=== PATIENT | female | born 1955 | race Caucasian/White ===

== ENCOUNTER → 2016-07-14 | Outpatient (REF) | payer OTHER ==
[2016-07-14 12:18] LABS: BASO % 0.7 % (0.0-1.0); EOS # 0.2 K/mm3 (0.0-0.50); EOS % 2.5 % (0.0-3.0); LYMPH # 1.6 K/mm3 (1.5-4.5); LYMPH % 25.2 % (24.0-44.0); MEAN CORPUSCULAR HEMOGLOBIN 30.9 pg (27.0-33.0); MEAN CORPUSCULAR HGB CONC 32.9 g/dl (32.0-36.5); MEAN CORPUSCULAR VOLUME 93.8 fl (80.0-96.0); MONO # 0.3 K/mm3 (0.0-0.8); MONO % 5.3 % (0.0-5.0); RED CELL DISTRIBUTION WIDTH 11.9 % (11.5-14.5); WHITE BLOOD COUNT 6.2 K/mm3 (4.0-10.0)
[2016-07-14 12:43] LABS: ALBUMIN/GLOBULIN RATIO 1.08 (1.00-1.93); ALKALINE PHOSPHATASE 76 U/L (45-117); ALT/SGPT 23 U/L (12-78); ANION GAP 8 MEQ/L (8-16); AST/SGOT 17 U/L (15-37); BILIRUBIN,TOTAL 0.6 MG/DL (0.2-1.0); BLOOD UREA NITROGEN 20 MG/DL (7-18); CALCIUM LEVEL 9.5 MG/DL (8.8-10.2); CARBON DIOXIDE LEVEL 29 MEQ/L (21-32); CHLORIDE LEVEL 105 MEQ/L (98-107); CHOLESTEROL LEVEL 195 MG/DL (<200); CREATININE FOR GFR 0.86 MG/DL (0.55-1.02); GLOMERULAR FILTRATION RATE > 60.0 (>45); GLUCOSE, FASTING 106 MG/DL (80-110); POTASSIUM SERUM 4.3 MEQ/L (3.5-5.1); SODIUM LEVEL 142 MEQ/L (136-145); TOTAL PROTEIN 7.7 GM/DL (6.4-8.2); TRIGLYCERIDES LEVEL 118 MG/DL (<150)
== END ==
LOC: M LABDRAW1 11:40
PROVIDERS: ATTEND Family Medicine
DX: Z00.00 Encounter for general adult medical examination without abnormal findings (principal); E78.4 Other hyperlipidemia; I10 Essential (primary) hypertension

== ENCOUNTER → 2016-10-06 | Outpatient (CLI) | payer OTHER ==
--- NOTE | 2016-10-08 15:23 | DEXA ---
AP SPINE L1 - L4 1.166 -0.2 1.2 LT FEMUR TOTAL 0.965 -0.3 0.7 RT FEMUR TOTAL 1.027 0.2 1.2 TOTAL BODY TOTAL OTHER DUAL FEMUR FRAX* ASSESSMENT Risk factors: History of adult fracture. 10 year probability of fracture Major osteoporotic fracture 11.4 % Hip fracture 0.5 % COMMENTS: Normal bone densitometry of the spine and hips. The decreased density of the spine does represent a significant change. The increased density of the right hip does not represent a significant change. The density of the spine has increased 3.8% since the initial exam on 2006. The spine density has decreased 2.5% since the most recent exam on 09/13/2010. The density of the left hip was not done previously, no comparison. The density of the right hip has increased 3.9% since the initial exam on 2006. The density of the right hip has increased 1.6% since the most recent exam on . FOLLOW-UP: Recommendation for the next bone density exam: 5 years. MITESH
== END ==
LOC: M WHC 13:27
PROVIDERS: ATTEND Family Medicine
DX: Z87.81 Personal history of (healed) traumatic fracture (principal); Z78.0 Asymptomatic menopausal state; Z13.820 Encounter for screening for osteoporosis